=== PATIENT | male | born 2000 | race Caucasian/White ===

== ENCOUNTER 2020-02-11 21:56 | Emergency (ER) | payer BC, OTHER ==
[2020-02-11 22:05] VITALS: TEMP 97; BMI 23.0
[2020-02-11] MEDS ORDERED: SODIUM CHLORIDE 0.9% 500 ML INFUS.BAG IV ONE (22:38)
[2020-02-11] MEDS ORDERED: ONDANSETRON 4 MG/2 ML VIAL IVPUSH ONE (23:27)
[2020-02-11] MEDS ORDERED: ONDANSETRON 4 MG/2 ML VIAL ONE (23:29)
[2020-02-11 23:47] VITALS: BP 124/67; PULSE 67
[2020-02-11 23:57] LABS: COCAINE, UR NEGATIVE ng/ml (CUTOFF=300); OPIATES, URI NEGATIVE ng/ml (CUTOFF=300); PHENCYCLIDINE,URINE NEGATIVE ng/ml (CUTOFF=25); URINE BARBITURATES NEGATIVE ng/ml (CUTOFF=200)
[2020-02-11 23:58] LABS: METHADONE, UR NEGATIVE ng/ml (CUTOFF=300); URINE AMPHETAMINES NEGATIVE ng/ml (CUTOFF=500); URINE BENZODIAZEPINES NEGATIVE ng/ml (CUTOFF=200)
[2020-02-12 00:18] LABS: BASO % 0.7 % (0-2.0); HEMATOCRIT 48.5 % (35.4-49); HEMOGLOBIN 16.2 GM/dL (11.7-16.9); LYMPH % 40.4 % (8-40); MCH 28.5 pg (25.7-33.7); MCHC 33.4 g/dl (32.0-35.9); MEAN CELL VOLUME 85.3 fl (80-96); MEAN PLT VOLUME 8.6 fl (7.5-11.1); MONO % 8.3 % (3.8-10.2); NEUT % 49.6 % (42.8-82.8); PLATELET COUNT 294 K/MM3 (134-434); RBC 5.68 M/mm3 (4.00-5.60); RDW 13.5 % (11.9-15.9); WHITE BLOOD COUNT 8.1 K/mm3 (4.0-10.0)
[2020-02-12 00:32] LABS: POTASSIUM 3.4 mmol/L (3.5-5.1)
[2020-02-12 00:34] LABS: CALCIUM 8.9 mg/dL (8.5-10.1)
[2020-02-12 00:35] LABS: ALBUMIN 4.4 g/dl (3.4-5.0); BLOOD UREA NITROGEN 23.3 mg/dL (7-18)
[2020-02-12 00:38] LABS: CREATININE 1.2 mg/dL (0.55-1.3)
[2020-02-12 00:39] LABS: BILIRUBIN,TOTAL 0.5 mg/dL (0.2-1)
[2020-02-12 00:40] LABS: TOT PROT 7.6 g/dl (6.4-8.2)
[2020-02-12] MEDS ORDERED: POTASSIUM CHLORIDE TABS 20 MEQ TABLET.ER (FP) PO ONE (00:48)
[2020-02-12] MEDS ORDERED: POTASSIUM CHLORIDE TABS 10 MEQ TABLET.ER (FP) ONE (01:03)
== END 2020-02-12 01:14 | disposition home or self-care (01) ==
LOC: JER 21:56
PROC: 3E033GC Introduction of Other Therapeutic Substance into Peripheral Vein, Percutaneous Approach (ICD-10-PCS; principal; 2020-02-11)
DX: R42 Dizziness and giddiness (principal)
CPT/HCPCS: 36415; 80053; 80307; 82375; 85025; 93005; 93010; 99284-25; C9803; U0003